=== PATIENT | female | born 1975 | race Two or more races ===

== ENCOUNTER → 2017-11-04 | Emergency (ER) | payer OTHER ==
[~2017-11-04] VITALS: Ht 170.2 cm; Wt 79.4 kg
[~2017-11-04] MED LIST: CYCLOBENZAPRINE10 MG PO; HYZAAR 50-12.51 EACH; MEDROLPACK PO; NORFLEX; PROTONIX20 MG PO; RELAGESIC 5001 EACH PO; TRAMADOL
== END | disposition home or self-care (01) ==
LOC: ER 23:20
DX: G44.209 Tension-type headache, unspecified, not intractable (principal)

== ENCOUNTER 2020-05-21 10:00 | Outpatient (CLI) | payer OTHER | END 2020-05-21 10:21 | disposition home or self-care (01) | LOC: NUCLEAR 10:00 | PROVIDERS: ATTEND Internal Medicine | DX: I11.9 Hypertensive heart disease without heart failure (principal); E55.9 Vitamin D deficiency, unspecified; Z12.31 Encounter for screening mammogram for malignant neoplasm of breast; Z12.39 Encounter for other screening for malignant neoplasm of breast; G47.39 Other sleep apnea; G47.37 Central sleep apnea in conditions classified elsewhere; G47.8 Other sleep disorders; R41.0 Disorientation, unspecified ==

== ENCOUNTER 2021-11-11 12:58 | Outpatient (CLI) | payer OTHER | END 2021-11-11 14:34 | disposition home or self-care (01) | LOC: ASH CLINIC 12:58 | PROVIDERS: ATTEND General Practice | DX: U07.1 COVID-19 (principal) ==

== ENCOUNTER 2022-11-02 08:01 | Outpatient (CLI) | payer OTHER | END 2022-11-02 08:03 | disposition home or self-care (01) | LOC: SONOGRAMA 08:01 | PROVIDERS: ATTEND Pathology Anatomic Pathology & Clinical Pathology | DX: C73 Malignant neoplasm of thyroid gland (principal); D34 Benign neoplasm of thyroid gland ==

== ENCOUNTER 2022-12-22 20:59 | Inpatient (IN) | payer OTHER ==
[~2022-12-22] VITALS: Ht 167.6 cm; Wt 69.9 kg
[2022-12-22] MEDS ORDERED: LOSARTAN POTASS25 MG PO (21:27)
[2022-12-22] MEDS ORDERED: ROSUVASTATIN CA10 MG PO (21:28)
[2022-12-22] MEDS ORDERED: METFORMIN HCL500 M3 (21:28)
[2022-12-26] MEDS ORDERED: AMOX1TAB5 PO (06:43)
[2022-12-26] MEDS ORDERED: PROTONIX40 MG PO (06:44)
[2022-12-26] MEDS ORDERED: GLIMEPIRIDE1 M1 PO (06:45)
== END 2022-12-26 11:40 | DRG 392 ==
LOC: ER 20:59 → MEDI 23:49
PROVIDERS: ADMIT Internal Medicine; ATTEND Internal Medicine
PROC: BW21ZZZ Computerized Tomography (CT Scan) of Abdomen and Pelvis (ICD-10-PCS; principal; 2022-12-22)
DX: K57.32 Diverticulitis of large intestine without perforation or abscess without bleeding (principal); E86.0 Dehydration; R10.32 Left lower quadrant pain; D72.829 Elevated white blood cell count, unspecified; C73 Malignant neoplasm of thyroid gland; E11.9 Type 2 diabetes mellitus without complications; I10 Essential (primary) hypertension; Z79.84 Long term (current) use of oral hypoglycemic drugs

== ENCOUNTER 2023-01-24 08:00 | Day surgery (SDC) | payer OTHER ==
[~2023-01-24 08:00] MED LIST changes: +AMOX1TAB5 PO; +COZAAR25 MG PO; +CRESTOR10 MG PO; +GLIMEPIRIDE1 M1 PO; +GLUMETZA500 MG PO; +LOSARTAN POTASS25 MG PO; +METFORMIN HCL500 M3; +PROTONIX40 MG PO; +ROSUVASTATIN CA10 MG PO
[2023-01-24] MEDS ORDERED: PERCOCET 5-3251 EACH PO (14:50)
== END 2023-01-24 18:15 | disposition home or self-care (01) ==
LOC: CIR.AMB 08:00
PROVIDERS: ATTEND Surgery
DX: C73 Malignant neoplasm of thyroid gland (principal); Z20.822 Contact with and (suspected) exposure to COVID-19; Z88.6 Allergy status to analgesic agent

== ENCOUNTER 2023-12-17 09:00 | Outpatient (CLI) | payer OTHER ==
[~2023-12-17 09:00] MED LIST changes: +PERCOCET 5-3251 EACH PO
== END 2023-12-17 09:10 | disposition home or self-care (01) ==
LOC: SONOGRAMA 09:00
PROVIDERS: ATTEND Pathology Anatomic Pathology & Clinical Pathology
DX: D34 Benign neoplasm of thyroid gland (principal); E07.89 Other specified disorders of thyroid; C73 Malignant neoplasm of thyroid gland

== ENCOUNTER 2024-11-11 07:10 | Outpatient (CLI) | payer OTHER | END 2024-11-11 07:21 | disposition home or self-care (01) | LOC: SONOGRAMA 07:10 | PROVIDERS: ATTEND Student in an Organized Health Care Education/Training Program | DX: C73 Malignant neoplasm of thyroid gland (principal); E04.2 Nontoxic multinodular goiter ==

== ENCOUNTER 2024-11-27 10:02 | Outpatient (CLI) | payer OTHER | END 2024-11-27 10:03 | disposition home or self-care (01) | LOC: NUCLEAR 10:02 | DX: M81.0 Age-related osteoporosis without current pathological fracture (principal) ==